=== PATIENT | male | born 1985 | race Caucasian/White ===

== ENCOUNTER 2016-11-20 23:01 | Emergency (ER) | payer BC ==
--- NOTE | 2016-11-21 01:19 | ERNOTE ---
Lower Extremity HPI - Narrative Date of Service: 11/21/16 - General Lower Extremities Pain: foot: left - pain, lateral swelling Time Seen by Provider: 11/21/16 01:05 Source: patient, family - Immun/Allergies/Home Medications Immunizations: IMMUNIZATION HX Immunizations Up to Date Yes History of Influenza Vaccine No Allergies/Adverse Reactions: Allergies Allergy/AdvReac Type Severity Reaction Status Date / Time No Known Allergies Allergy Verified 11/20/16 23:07 Home Medications: HOME MEDICATIONS Acetaminophen [Tylenol] 1,000 mg PO Q4H PRN 11/20/16 [Last Taken 11/20/16 22:10] - Patient's Past Medical History Patient History - Medical: No pertinent hx Patient History - Cardiac/Respiratory: No pertinent hx Patient History - Cancer: No Hx of Cancer Patient History - Surgical Procedures: No surgical history Patient History - Other: None - Social History Living Situations: home Psych History: No pertinent hx Smoking Status: Never smoker Alcohol Use: none Drug Use: none - Immunizations Immunizations Up to Date: Yes History of Influenza Vaccine: No Physical Exam - Physical Exam General Appearance: Present: wd/wn, alert, no apparent distress Head Exam: Present: normal inspection, no evidence of injury Eye Exam: Normal inspection: bilateral, PERRL: bilateral, EOMI: bilateral Ears, Nose, Throat: Present: normal ENT inspection Neck: Present: normal inspection, nontender Respiratory: Present: no respiratory distress, normal breath sounds, lungs clear Cardiovascular/Chest: Present: regular rate, rhythm, no murmur, normal peripheral pulses Gastrointestinal/Abdominal: Present: normal bowel sounds, nontender, nondistended, soft, no organomegaly Rectal Exam: Present: deferred Male Genitals Exam: Present: deferred Back Exam: Present: normal inspection, normal range of motion, no CVA tenderness Extremity Exam: Present: normal inspection, normal range of motion, other - obvious bruising over 5th metatarsal area, no gross deformity . Absent: pedal edema Neurological Exam: Present: alert, oriented, normal mood/affect, no motor/ sensory deficits Skin Exam: Present: normal color, warm/dry, other - bruising noted. ED Progress - Vital Signs Patient's Vital Signs:: I have reviewed the patient's vital signs. Vital Signs: Vital Signs 11/20/16 23:04 Temperature 36.2 C L Pulse Rate 99 Respiratory 18 Rate Blood Pressure 107/43 O2 Sat by Pulse 100 Oximetry - X-Ray X-Ray #1 X-Ray: foot Interpretation: Interp. by me, Reviewed by me X-ray Comments: Patient Patient Name:CROW PICKERING Date: 1985 Sex: M Order Number: [id number] Unique Exam ID: [id number] Exam Requested: [id number] - Foot 3 Views LT * Date Scheduled: 11-20-2016 11:08 PM Study Priority: Requesting Service: Requesting Physician: Jeni Brower Reason for Exam: pain/injury Radiological Report : [place] [address] NAME: CROW PICKERING : 1985 MR #: [id number] CC: Jeni Brower DO LOC: ER ADM DATE: X-RAY REPORT [id number] RAD/Foot 3 Views LT * Exam Date: 11/20/2016 23:08 Ordering Physician: Jeni Brower Indication: pain/injury Comparison: None Technique: Foot 3 Views LT * Findings: Normal bony mineralization and alignment. No fracture or dislocation. No productive or erosive changes are seen. No lytic or blastic changes. No soft tissue abnormality. IMPRESSION: NO ACUTE OSSEOUS ABNORMALITY Electronically signed by Lion Bartholomew M.D.. Lion Bartholomew MD Dict: [id number] Typed: 11/21/1609/ 11/21/16 0711/21/16 07 - Progress/Reassessment Chief Complaint: Foot Injury/Pain Progress:: Improved Plan - Plan Plan: Patient is stable for discharge. Departure Clinical Impression: Contusion, foot Qualifiers: Encounter type: initial encounter Laterality: left Qualified Code(s): S90.32XA - Contusion of left foot, initial encounter - Departure Disposition: Home self-care Condition: Fair Instructions: RICE for Routine Care of Injuries, [id number], Foot Contusion, [id number] Additional Instructions: patient to use otc aleve for pain control Recommend rest every 2 hours to decrease pain and worsening swelling. Referrals: Dmitri Wright MD [Primary Care Provider] -
[2016-11-21 01:35] VITALS: BP 128/78
== END 2016-11-21 01:28 | disposition home or self-care (01) ==
LOC: ER 23:01
DX: S90.32XA Contusion of left foot, initial encounter (principal)

== ENCOUNTER 2017-04-23 10:53 | Emergency (ER) | payer BC | END 2017-04-23 11:47 | disposition left against medical advice (07) | LOC: ER 10:53 | DX: Z53.21 Procedure and treatment not carried out due to patient leaving prior to being seen by health care provider (principal) ==

== ENCOUNTER 2017-07-05 13:12 | Observation (INO) | payer BC ==
[2017-07-05] MEDS ORDERED: NORMAL SALINE 1,000 ML IV ONE (13:22)
[2017-07-05] MEDS ORDERED: LORazepam 2 MG/ML DISP.SYRIN IV ONE (13:22)
[2017-07-05 13:34] LABS: Hematocrit 42.6 % (42.0-52.0); Hemoglobin 14.9 gm/dL (13.5-18.0); Mean Cell Volume 89.7 fl (78-100); Mean Corpuscular Hemoglobin 31.4 pg (27-31); Mean Platelet Volume 9.5 fl (6.0-9.5); Neutrophil # 6.2 K/mm3 (1.3-6.0); Platelet Count 315 K/mm3 (150-450); Red Blood Count 4.75 M/mm3 (4.7-6.0); Red Cell Distribution Width 11.6 % (11.5-14.0); White Blood Count 11.5 K/mm3 (4.0-10.5)
[2017-07-05 13:41] LABS: Cocaine Ur Negative (NEGATIVE); Urine Barbiturate Negative (NEGATIVE); Urine Benzodiazepines Negative (NEGATIVE); Urine Opiates Negative (NEGATIVE); Urine PCP Negative (NEGATIVE); Urine THC Negative (NEGATIVE)
[2017-07-05 13:45] LABS: Anion Gap 21.8 mmol/L (6.8-13.8); BUN/Creatinine Ratio 8.9 (9.0-21.6); Bilirubin, Total 0.3 mg/dL (0.0-1.1); Ca. Corrected For Albumin 8.2 mg/dL (8.4-10.2); Calcium * 8.5 mg/dL (7.9-10.9); Carbon Dioxide 20.1 mmol/L (24-32.6); Potassium 3.9 mmol/L (3.4-4.6)
[2017-07-05 13:53] LABS: Urine Appearance Clear (CLEAR); Urine Bacteria None Seen; Urine Bilirubin Negative (NEGATIVE); Urine Blood 50 /ul (NEGATIVE); Urine Color Yellow; Urine Ketone Negative (NEGATIVE); Urine Nitrite Negative (NEGATIVE); Urine Protein Negative (NEGATIVE); Urine RBC 0-5 /hpf (0-5); Urine Urobilinogen Normal (NORMAL); Urine WBC None Seen /hpf (0-5)
[2017-07-05] MEDS ORDERED: LORazepam 2 MG/ML DISP.SYRIN ONE (14:08)
[2017-07-05] MEDS ORDERED: LORazepam 2 MG/ML DISP.SYRIN IV PRN (14:40)
--- NOTE | 2017-07-05 15:04 | ERNOTE ---
Neuro HPI ER Record Date of Service: 07/05/17 Presenting Symptoms: other - seizure Time Seen by Provider: 07/05/17 13:16 Source: patient Exam Limitations: no limitations Immunizations: IMMUNIZATION HX Immunizations Up to Date No History of Influenza Vaccine No Hx Pneumococcal Vaccination No Allergies/Adverse Reactions: Allergies Allergy/AdvReac Type Severity Reaction Status Date / Time No Known Allergies Allergy Verified 11/20/16 23:07 - History of Present Illness Narrative: Patient presents to the ED for seizures. He has never had a seizure before. He has a at home and tells me he has not been taking care of himelf. He hasn't been eating or drinking and hasn't been sleeping. Today he had an apparent seizure. saw it and he turned tot eh side ad stiffened up. He turned blue then was confused afterwards. He seemed to came back to and then had a second event like this. EMS called. He was reported to be postictal. His started hitting him and actually attempted CPR while he was having this apparent seizure. He denies any pain, no headache, no N/T/W, no fever or other recent illness. He has no Hx of seizure. Family Hx of seizure noted. Onset: gone now Context: other - no head trauma - Character of Deficits Baseline Cognition: Present: alert, oriented x 4 Baseline Gait: Present: walks w/o assistance Associated Symptoms: Reports: seizure. Denies: fever/chills, chest pain, neck/ back pain, headache, altered mental status, decreased responsiveness Prior Treament: Denies: recently seen Review of Systems - Review of Systems Constitutional: Absent: fever ENT: Absent: sore throat Respiratory: Absent: shortness of breath Cardiology: Absent: chest pain Gastrointestinal/Abdominal: Absent: abdominal pain Genitourinary: Absent: dysuria Musculoskeletal: Present: See HPI Neurological: Present: seizure. Absent: weakness All Other Systems: All systems neg except as marked - Patient's Past Medical History Patient History - Medical: No pertinent hx Patient History - Cardiac/Respiratory: No pertinent hx Patient History - Cancer: No Hx of Cancer Patient History - Surgical Procedures: No surgical history Patient History - Other: None - Family History Brother Family History - Medical: Seizures Family History - Cardiac/Respiratory: No pertinent hx Family History - Cancer: No pertinent family hx - Social History Living Situations: spouse Abuse History: No History of abuse Psych History: No pertinent hx Smoking Status: Never smoker Have you smoked in the past 12 months: No Do you dip or chew tobacco: No Alcohol Use: none Drug Use: none - Immunizations Immunizations Up to Date: No Hx Pneumococcal Vaccination: No History of Influenza Vaccine: No Physical Exam - Physical Exam General Appearance: Present: alert, no apparent distress Head Exam: Present: normal inspection, no evidence of injury Eye Exam: Normal inspection: bilateral, PERRL: bilateral, EOMI: bilateral Ears, Nose, Throat: Present: normal ENT inspection. Absent: pharyngeal erythema , tonsillar swelling Neck: Present: normal inspection, nontender, other - no meningeal signs Respiratory: Present: no respiratory distress, normal breath sounds, no accessory muscle use, lungs clear Cardiovascular/Chest: Present: regular rate, rhythm, normal peripheral pulses Gastrointestinal/Abdominal: Present: normal bowel sounds, nontender, nondistended, soft Back Exam: Present: no vertebral tenderness Extremity Exam: Present: normal inspection, non-tender, no edema Neurological Exam: Present: alert, normal mood/affect, no motor/sensory deficits , community health education coordinator II-XII nml as tested. Absent: motor weakness Skin Exam: Present: normal color, warm/dry ED Progress - Results and Orders Patient's Lab Results:: I have reviewed the patient's lab results. - Vital Signs Patient's Vital Signs:: I have reviewed the patient's vital signs. Vital Signs: Vital Signs 07/05/17 07/05/17 07/05/17 13:14 13:28 13:29 Temperature 36.5 C 36.8 C Pulse Rate 99 103 H 103 H Respiratory 20 16 Rate Blood Pressure 124/77 124/77 O2 Sat by Pulse 96 Oximetry 07/05/17 14:00 Temperature 36.6 C Pulse Rate 104 H Respiratory 12 Rate Blood Pressure 107/66 O2 Sat by Pulse 99 Oximetry - EKG EKG read: Interp. by me EKG Comments: Sinus tach rate 108. Non-specific, no STEMI. - CT/Ultrasound CT/Ultrasound Narrative: I reviewed official radiology report for head CT - Progress/Reassessment Chief Complaint: Seizure Activity Progress Note-Subjective: 07/05/17 15:02 Clinically recurrent Sz X 2. now Sz free. Dehydrated clinically, sleep deprived. lactic acif likely elevated d/t seizure. Nothing clinically to suggest sepsis, toxicity or meningitis or other acute infectious process. Afebrile. Given 2 events will admit for obs. D./W Dr Mondragon who will admit. Pt agreeable. Departure Clinical Impression: New onset seizure, Dehydration - Departure Disposition: Home self-care Condition: Stable
[2017-07-05] MEDS ORDERED: FLU VACC QS2017-18(6MOS UP)/PF 60 MCG/0.5 ML SYRINGE IM ONE (17:16)
[2017-07-05] MEDS ORDERED: DEXTROSE 5%-0.5 NORMAL SALINE 1,000 ML IV PRN (19:49)
--- NOTE | 2017-07-05 19:51 | HP ---
Chief Complaint - Chief Complaint Date of Service: 07/05/17 Time of Service: 19:50 Chief Complaint: seizures History of Present Illness: Derek Elizondo, is a 31-year-old white male, with no significant past medical history in the past, who was admitted on 07/05/2017 because of seizures. The patient was lying on bed was witnessed by his to have turnesd to his side, stiffened up and started turning blue. He was confused after the incident. . As per he seemed to have come back but then had a second event and so she called EMS. EMS when they got there noted that he was postictal. As ER notes his started hitting him and actually attempted CPR while he was having ,this seizure. She sasy he was frothing from his mouth. The patient denies any history of head trauma or MVA in the past, although he said he did play 1 year football when he was in high school. Denied any chest pain,fever, chills. nausea , vomiting, drug abuse, alcohol abuse and denied any history of seizures in the past. He does have a family history of sizure in his older brother. In the emergency room his workup including a head CT scan were essentially within normal limits except for mildly elevated white blood cell count and lactic acidosis of 10.3. His UDS was negative. He was then admitted for altered B-T shunt. He received 0.5 mg of IV Ativan in the emergency room. They just had a baby 3 weeks ago and he says he had been stressed out. He had not been sleeping well, not eating, and not drinking well too.. - Patient's Past Medical History Patient History - Medical: No pertinent hx Patient History - Cardiac/Respiratory: No pertinent hx Patient History - Cancer: No Hx of Cancer Patient History - Surgical Procedures: No surgical history Patient History - Other: None - Family History Brother Family History - Medical: Seizures Family History - Cardiac/Respiratory: No pertinent hx Family History - Cancer: No pertinent family hx Mother Family History - Medical: No pertinent hx Family History - Cardiac/Respiratory: No pertinent hx Family History - Cancer: No pertinent family hx Father Family History - Medical: No pertinent hx Family History - Cardiac/Respiratory: No pertinent hx Family History - Cancer: No pertinent family hx - Social History Living Situations: spouse Abuse History: No History of abuse Psych History: No pertinent hx Smoking Status: Never smoker Have you smoked in the past 12 months: No Do you dip or chew tobacco: No Alcohol Use: none Drug Use: none - Immunizations Immunizations Up to Date: No Hx Pneumococcal Vaccination: No History of Influenza Vaccine: No Review Of Systems (GEN) - Review of Systems Generalized/Overall Review: Present: Weakness. Absent: Chills, Fever EENTM: Present: No Symptoms Reported Respiratory: Absent: Cough, Shortness of Breath Cardiac: Absent: Chest Pain, Edema, Palpitations Abdominal: Absent: Nausea, Vomiting Genitourinary: Absent: Urgency, Frequency Musculoskeletal: Absent: Joint Pain Neurological: Absent: Headache, Parasthesia, Tingling, Tremors Immunizations: IMMUNIZATION HX Immunizations Up to Date No History of Influenza Vaccine No Hx Pneumococcal Vaccination No Allergies/Adverse Reactions: Allergies Allergy/AdvReac Type Severity Reaction Status Date / Time No Known Allergies Allergy Verified 07/05/17 16:20 Home Medications: HOME MEDICATIONS NK [No Home Medication] 07/05/17 [Last Taken Unknown] Exam - Exam Vital Signs: Vital Signs - Last Taken Temp 36.6 C 07/05/17 18:59 Pulse 90 07/05/17 18:59 Resp 16 07/05/17 18:59 BP 126/74 07/05/17 18:59 Pulse Ox 99 07/05/17 18:59 Constitutional: Present: Alert, Oriented x3, Cooperative ENT Exam: Present: hearing grossly normal Eye Exam: bilateral eye: normal inspection, PERRL, EOMI Neck: Present: supple Respiratory: Present: normal breath sounds, No rales, No wheezing Cardiovascular/Chest: Present: regular rate, rhythm, no rub, JVD Abdomen: Present: Normal bowel sounds, soft, nontender, nondistended Extremity: Present: no pedal edema, no calf tenderness Neurologic: Present: software administrator II-XII nml as tested, no motor/sensory deficits, oriented x 3 Diagnostic Studies: Abnormal Lab Results 07/05/17 Range/Units 16:10 Lactic Acid, Venous 2.3 H* (0.4-1.9) mmol/L Laboratory Results WBC 11.5 K/mm3 (4.0-10.5) H 07/05/17 13:27 RBC 4.75 M/mm3 (4.7-6.0) 07/05/17 13:27 Hgb 14.9 gm/dL (13.5-18.0) 07/05/17 13:27 Hct 42.6 % (42.0-52.0) 07/05/17 13: MCV 89.7 fl (78-100) 07/05/17 13:27 MCH 31.4 pg (27-31) H 07/05/17 13: MCHC 35.0 g/dl (32-36) 07/05/17 13: RDW 11.6 % (11.5-14.0) 07/05/17 13: Plt Count 315 K/mm3 (150-450) 07/05/17 13: MPV 9.5 fl (6.0-9.5) 07/05/17 13:27 Immature Gran % (Auto) 4.40 % (0.001-0.429) H 07/05/17 13: Immature Gran # (Auto) 0.50 K/mm3 (0.000-0.0310) H 07/05/17 13:27 Neutrophils % 54.0 % (42-75.0) 07/05/17 13: Lymphocytes % 32.3 % (20-51) 07/05/17 13: Monocytes % 6.3 % (0.0-9) 07/05/17 13: Eosinophils % 2.4 % (0.0-3.0) 07/05/17 13: Basophils % 0.6 % (0.0-1.0) 07/05/17 13: Nucleated RBC % 0.0 k/mm3 (0-1) 07/05/17 13:27 Neutrophils # 6.2 K/mm3 (1.3-6.0) H 07/05/17 13: Lymphocytes # 3.71 k/mm3 (1.5-3.5) H 07/05/17 13: Monocytes # 0.7 k/mm3 (0.0-1.0) 07/05/17 13: Eosinophils # 0.3 k/mm3 (0.0-0.7) 07/05/17 13: Absolute Basophils 0.1 k/mm3 (0.0-0.1) 07/05/17 13:27 Sodium 140 mmol/L (132-142) 07/05/17 13:27 Plasma Sodium 140 mmol/L (130-142) 07/05/17 13:27 Potassium 3.9 mmol/L (3.4-4.6) 07/05/17 13:27 Chloride 102 mmol/L (97-106) 07/05/17 13:27 Carbon Dioxide 20.1 mmol/L (24-32.6) L 07/05/17 13:27 Anion Gap 21.8 mmol/L (6.8-13.8) H 07/05/17 13:27 BUN 11 mg/dL (6-23) 07/05/17 13:27 Creatinine 1.24 mg/dL (0.4-1.4) 07/05/17 13:27 Est GFR (Non-Af Amer) 73 mL/min (60-130) 07/05/17 13:27 BUN/Creatinine Ratio 8.9 (9.0-21.6) L 07/05/17 13:27 Random Glucose 128 mg/dL (70-110) H 07/05/17 13:27 Lactic Acid, Venous 2.3 mmol/L (0.4-1.9) H* 07/05/17 16:10 Calcium 8.5 mg/dL (7.9-10.9) 07/05/17 13:27 Calcium Adj for Albumin 8.2 mg/dL (8.4-10.2) L 07/05/17 13:27 Total Bilirubin 0.3 mg/dL (0.0-1.1) 07/05/17 13:27 AST 29 U/L (0-48) 07/05/17 13:27 ALT 77 U/L (19-67) H 07/05/17 13:27 Alkaline Phosphatase 84 U/L (50-170) 07/05/17 13:27 Creatine Kinase 112 U/L (0-259) 07/05/17 13:27 C-Reactive Prot, Quant Less than 0.2 mg/dL (0.0-0.9) 07/05/17 13:27 Total Protein 8.0 gm/dL (6.2-8.2) 07/05/17 13:27 Albumin 4.0 gm/dl (3.4-5.0) 07/05/17 13:27 Urine Color Yellow 07/05/17 13:28 Urine Appearance Clear (CLEAR) 07/05/17 13:28 Urine pH 6.0 pH (5.0-7.0) 07/05/17 13:28 Ur Specific Anna 1.020 SP.GR. (1.005-1.030) 07/05/17 13:28 Urine Protein Negative mg/dL (NEGATIVE) 07/05/17 13:28 Urine Glucose (UA) Negative mg/dL (NEGATIVE) 07/05/17 13:28 Urine Ketones Negative mg/dL (NEGATIVE) 07/05/17 13:28 Urine Blood 50 /ul (NEGATIVE) H 07/05/17 13:28 Urine Nitrate Negative (NEGATIVE) 07/05/17 13:28 Urine Bilirubin Negative mg/dl (NEGATIVE) 07/05/17 13:28 Urine Urobilinogen Normal EU/dl (NORMAL) 07/05/17 13:28 Ur Leukocyte Esterase Negative /ul (NEGATIVE) 07/05/17 13:28 Urine RBC 0-5 /hpf (0-5) 07/05/17 13:28 Urine WBC None seen /hpf (0-5) 07/05/17 13:28 Ur Epithelial Cells None seen /hpf (0-5) 07/05/17 13:28 Urine Bacteria None seen (NONE) 07/05/17 13:28 Urine Culture Comments No culture indicated 07/05/17 13:28 Urine Opiates Screen Negative (NEGATIVE) 07/05/17 13:28 Barbiturate Screen Negative (NEGATIVE) 07/05/17 13:28 Ur Phencyclidine Scrn Negative (NEGATIVE) 07/05/17 13:28 Urine Amphetamine Negative (NEGATIVE) 07/05/17 13:28 U Benzodiazepines Scrn Negative (NEGATIVE) 07/05/17 13:28 Urine Cocaine Screen Negative (NEGATIVE) 07/05/17 13:28 Urine Marijuana (THC) Negative (NEGATIVE) 07/05/17 13:28 Influenza Type A Ag Negative (NEGATIVE) 07/05/17 14:00 Influenza Type B Ag Negative (NEGATIVE) 07/05/17 14:00 Assessment/Plan - Assessment/Plan (1) Dehydration Assessment: hiral continue with IVF. Problem: Acute (2) New onset seizure Assessment: will monitor closelt for any recurrence. Will do EEG in the morning and wschedule an MRI on outpatient basis. will defer from starting any antiseizure medication for now. has PRN Ativan. will refer him to neurology as an outpatient. he was told by [employer] law he cannot drive for at least 6 months. Problem: Acute (3) Leukocytosis Assessment: likely reactive/inflammatory from his seizures., Problem: Acute
[2017-07-05] MEDS: ACETAMINOPHEN 325 MG TABLET PO PRN (20:45)
[2017-07-05] MEDS ORDERED: ONDANSETRON HCL/PF 2 MG/ML VIAL IV PRN (20:49)
[2017-07-05 21:22] LABS: Magnesium 2.4 mg/dL (1.2-2.8); Phosphorus 2.7 mg/dL (2.2-4.2)
[2017-07-06] MEDS ORDERED: DEXTROSE 5%-0.5 NORMAL SALINE 1,000 ML IV PRN (04:47)
--- NOTE | 2017-07-06 08:44 | PN ---
Progess Note - Interim Date: 07/06/17 Time: 08:42 Narrative: 07/06/17 08:42 Patient for EEG today. plan for MRI and neurology consult on outpatient basis.
[2017-07-06 08:54] LABS: Hematocrit 35.9 % (42.0-52.0); Hemoglobin 12.7 gm/dL (13.5-18.0); Mean Cell Volume 89.3 fl (78-100); Mean Corpuscular Hemoglobin 31.6 pg (27-31); Mean Corpuscular Hgb Conc 35.4 g/dl (32-36); Mean Platelet Volume 9.6 fl (6.0-9.5); Neutrophil % 65.3 % (42-75.0); Platelet Count 242 K/mm3 (150-450); Red Blood Count 4.02 M/mm3 (4.7-6.0); Red Cell Distribution Width 11.9 % (11.5-14.0); White Blood Count 10.7 K/mm3 (4.0-10.5)
[2017-07-06] MEDS ORDERED: FLU VACC QS2017-18(6MOS UP)/PF 60 MCG/0.5 ML SYRINGE IM ONE (09:00)
[2017-07-06 09:25] LABS: Anion Gap 10.3 mmol/L (6.8-13.8); BUN/Creatinine Ratio 7.5 (9.0-21.6); Calcium * 8.1 mg/dL (7.9-10.9); Carbon Dioxide 28.1 mmol/L (24-32.6); Estimated Creat Clear 97.3; Potassium 3.4 mmol/L (3.4-4.6)
--- NOTE | 2017-07-06 14:56 | DS ---
(1) Dehydration Problem: Acute (2) New onset seizure Problem: Acute (3) Leukocytosis Problem: Acute Description of Stay: Derek Elizondo, is a 31-year-old white male, with no significant past medical history in the past, who was admitted on 07/05/2017 because of seizures. The patient was lying on bed was witnessed by his to have turnesd to his side, stiffened up and started turning blue. He was confused after the incident. . As per he seemed to have come back but then had a second event and so she called EMS. EMS when they got there noted that he was postictal. As ER notes his started hitting him and actually attempted CPR while he was having ,this seizure. She sasy he was frothing from his mouth. The patient denies any history of head trauma or MVA in the past, although he said he did play 1 year football when he was in high school. Denied any chest pain,fever, chills. nausea , vomiting, drug abuse, alcohol abuse and denied any history of seizures in the past. He does have a family history of sizure in his older brother. In the emergency room his workup including a head CT scan were essentially within normal limits except for mildly elevated white blood cell count and lactic acidosis of 10.3. His UDS was negative. He was then admitted for altered B-T shunt. He received 0.5 mg of IV Ativan in the emergency room. They just had a baby 3 weeks ago and he says he had been stressed out. He had not been sleeping well, not eating, and not drinking well too. He did not have any seizure activity during his hospital stay. His lactic acid is back to normal. His WBC is 10.7. We were not able to do his EEG but will schedule an MRI and his EEG on outpatient basis. Will schedule him an appointment with Neurolgy for his seizure, new onset and follow up with his PCP, Dr. Wright in 1 week. Procedures Performed: none Discharge Location: Home Disposition: Home self-care Condition: Stable Discharge Activity: Activity as tolerated Discharge Diet: General/regular food Referrals: Dmitri Wright MD [Primary Care Provider] - Problem Oriented Discharge Instructions to Patient/Family: Seizure, Adult, Easy -to-Read Additional Patient Instructions (free text): EEG Thursday at 4:00pm. Please check into outpatient registration. Please schedule a MRI of the brain w/ and w/o on outpatient basis. Also schedule a neurology consult on outpatient basis- seizures. He was told that he cannot drive or operate a vehicle for at least 6 months after a seizure. Schedule a follow up appointment with is PCP- Dr. Wright in 1 week. Prescriptions (Any new or edited meds): Acetaminophen [Tylenol] 650 mg PO QID PRN #30 tablet PRN Reason: Pain Complete Home Medications List: Complete Home Medication List: Acetaminophen [Tylenol] 650 mg PO QID PRN #30 tablet 07/06/17
[2017-07-06] MEDS: ACETAMINOPHEN 325 MG TABLET PO PRN (16:06)
[2017-07-06 17:54] VITALS: BP 126/76
== END 2017-07-06 19:42 | disposition home or self-care (01) ==
LOC: ER 13:12 → MS 14:43
PROVIDERS: ADMIT Internal Medicine; ATTEND Internal Medicine
DX: Z68.27 Body mass index [BMI] 27.0-27.9, adult; E86.0 Dehydration; D72.829 Elevated white blood cell count, unspecified; R56.9 Unspecified convulsions; Z23 Encounter for immunization
CPT/HCPCS: 36415; 70450; 80048; 80053; 80307; 81001; 82550; 83605; 83735; 84100; 85025; 86140; 87040; 87400; 90471; 90686; 93005; 96361; 96374; 96375; 99284; G0378; J2405